=== PATIENT | female | born 1975 | race African-American/Black ===

== ENCOUNTER 2021-04-19 02:26 | Emergency (ER) | payer BC ==
[~2021-04-19] VITALS: Ht 157.5 cm; Wt 63.5 kg
[2021-04-19 02:40] VITALS: BP_SYST 174
--- NOTE | 2021-04-19 02:40 | NUR ---
PT TO BED 3 FOR EVALUATION, GOWNED AND ATTACHED TO CERTIFICATION ENGINEER.
--- NOTE | 2021-04-19 02:43 | NUR ---
EKG DONE AND RESULTS TO MD FOR INTERPRETATION.
--- NOTE | 2021-04-19 02:45 | NUR ---
PT AAO AND AMBULATORY REPORTING SUDDEN ONSET OF SOB THAT WOKE HER UP FROM SLEEP. PT ONLY REPORTS HISTORY OF HTN AND THAT HER PAIN SCALE IS CURRENTLY 7/10 ON PAIN SCALE. PT ALSO REPORTS THAT SHE WAS RECENTLY SEEN AT LOCAL [facility] 3 DAYS AGO WHERE SHE HAD A FULL WORKUP THAT CAME OUT NEGATIVE.
--- NOTE | 2021-04-19 03:00 | NUR ---
IV ESTABLISHED 20G IV HL PLACED TO RIGHT FOREARM. LABS DRAWN AND SENT FOR ANALYSIS.
[2021-04-19 03:15] LABS: BASOPHILS % (AUTO) 0.7 % (0.0-2.0); EOSINOPHILS # (AUTO) 0.4 K/uL (0.0-0.4); EOSINOPHILS % (AUTO) 6.1 % (0.0-4.0); HEMATOCRIT 34.4 % (36-48); HEMOGLOBIN 11.9 g/dL (12.0-16.0); LYMPHOCYTES # (AUTO) 2.7 K/uL (1.0-5.5); LYMPHOCYTES % (AUTO) 46.2 % (20.5-51.5); MEAN CORPUSCULAR HEMOGLOBIN 31 pg (27-31); MEAN CORPUSCULAR HGB CONC 35 % (32-36); MEAN CORPUSCULAR VOLUME 89 fL (79.0-98.0); MONOCYTES # (AUTO) 0.2 K/uL (0.0-1.0); MONOCYTES % (AUTO) 3.7 % (1.7-9.3); NEUTROPHILS # (AUTO) 2.5 K/uL (1.8-7.7); NEUTROPHILS % (AUTO) 43.3 % (40.0-70.0); PLATELET COUNT (AUTO) 231 K/uL (130-430); RED BLOOD CELL COUNT(AUTO) 3.86 MIL/uL (4.2-6.2); RED CELL DISTRIBUTION WIDTH 12.9 % (9.0-15.0); WHITE BLOOD COUNT (AUTO) 5.8 K/uL (4.8-10.8)
[2021-04-19 03:22] LABS: CREATININE 0.69 mg/dL (0.55-1.30); POTASSIUM 3.5 mmol/L (3.5-5.1)
[2021-04-19 03:28] LABS: ALBUMIN 3.6 g/dL (3.4-4.8); TOTAL BILIRUBIN 1.1 mg/dL (0.0-1.0)
--- NOTE | 2021-04-19 04:05 | NUR ---
PT RESTING QUIETLY IN NO DISTRESS AWAITING DISPOSITION.
--- NOTE | 2021-04-19 04:35 | NUR ---
DR. GALLEGOS AT BEDSIDE TO RE-EVALUATE.
[2021-04-19] MEDS ORDERED: NACL 0.9% 1,000 ML IV ONE (05:00)
[2021-04-19] MEDS ORDERED: POTASSIUM CHLORIDE 20 MEQ TAB.PRT.SR PO ONE (05:00)
--- NOTE | 2021-04-19 05:00 | NUR ---
REPEAT EKG DONE AND GIVEN TO MD FOR INTERPRETATION. SECOND SERIAL TROPONIN DRAWN AN SENT. D-DIMER ALSO ADDED TO LABS WELL.
--- NOTE | 2021-04-19 05:05 | NUR ---
PORTABLE CXR DONE AT BEDSIDE.
[2021-04-19] MEDS ORDERED: ESOM20CA PO (05:51)
--- NOTE | 2021-04-19 06:45 | NUR ---
PT RESTING QUIETLY IN NO DISTRESS AWAITING DISPOSITION.
[2021-04-19] MEDS ORDERED: POTASSIUM CHLORIDE 20 MEQ TAB.PRT.SR ONE (07:02)
--- NOTE | 2021-04-19 07:10 | NUR ---
REPORT GIVEN TO RUBIA HASTINGS WHO WILL ASSUME CARE.
[2021-04-19 08:26] VITALS: BP_SYST 144
--- NOTE | 2021-04-19 08:27 | NUR ---
Patient given written and verbal discharge instructions and verbalizes understanding. ER MD discussed with patient the results and treatment provided. Patient in stable condition. ID arm band removed. IV catheter removed intact and dressing applied, no active bleeding. Rx of Nexium given. Patient educated on pain management and to follow up with PMD. Pain Scale 0/10. Opportunity for questions provided and answered. Medication side effect fact sheet provided.
== END 2021-04-19 08:27 | disposition home or self-care (01) ==
LOC: SED 02:26
DX: R07.89 Other chest pain (principal); Z88.0 Allergy status to penicillin; Z79.899 Other long term (current) drug therapy
CPT/HCPCS: 36415; 71045; 80053; 84484; 85025; 85379; 93005; 96360; 96361; 99285; J7040